=== PATIENT | male | born 1995 | race Caucasian/White ===

== ENCOUNTER 2020-11-10 11:54 | Emergency (ER) | payer MEDICAID ==
[~2020-11-10] VITALS: Ht 172.7 cm; Wt 97.7 kg
[2020-11-10 13:28] VITALS: BP 149/88
== END 2020-11-10 13:29 | disposition home or self-care (01) ==
LOC: ER 11:55
DX: M25.512 Pain in left shoulder (principal)
CPT/HCPCS: 73030; 99283